=== PATIENT | female | born 1990 | race African-American/Black ===

== ENCOUNTER 2019-05-30 12:28 | Inpatient (IN) ==
[2019-05-30] MEDS ORDERED: TYLENOL PO PRN (13:17)
[2019-05-30] MEDS ORDERED: DULCOLAX PR PRN (13:17)
[2019-05-30] MEDS ORDERED: MOTRIN PO PRN (13:17)
[2019-05-30] MEDS ORDERED: ZOFRAN ODT PO PRN (13:17)
[2019-05-30] MEDS ORDERED: PHENOBARBITAL IV PRN (13:17)
[2019-05-30] MEDS ORDERED: D5W 1,000 ML IV PRN (13:17)
[2019-05-30] MEDS ORDERED: ZOFRAN IV PRN (13:17)
[2019-05-30] MEDS ORDERED: MAALOX PLUS LIQUID PO PRN (13:17)
[2019-05-30] MEDS ORDERED: NICOTINE GUM BUCCAL PRN (13:17)
[2019-05-30] MEDS ORDERED: NICODERM PATCH TD PRN (13:17)
[2019-05-30] MEDS ORDERED: IMODIUM PO PRN ×2 (13:17)
[2019-05-30] MEDS ORDERED: SENOKOT PO PRN (13:17)
[2019-05-30] MEDS ORDERED: ZOFRAN IM PRN (13:17)
[2019-05-30] MEDS ORDERED: TUBERSOL ID ONE (13:17)
[2019-05-30] MEDS ORDERED: LIBRIUM PO PRN (13:29)
[2019-05-30] MEDS ORDERED: BENTYL PO PRN (13:29)
[2019-05-30] MEDS ORDERED: SINEMET 25/100 PO PRN (13:29)
[2019-05-30 15:24] LABS: HEMATOCRIT 34.2 % (37.0-47.0); HEMOGLOBIN 10.4 g/dL (12.0-16.0); MCHC 30.4 g/dL (33-37); MCV 85.5 FL (81-99); MPV 10.2 FL (7.4-10.4); RDW 17.2 % (11.5-14.5); WBC 4.06 X1000 (4.8-10.8)
[2019-05-30] MEDS: LIBRIUM PO SCH ×2 (15:24→20:26)
[2019-05-30 15:39] LABS: URINE SOURCE CLEAN CATCH
[2019-05-30 15:45] LABS: AGAP 11; ALBUMIN 4.1 g/dL (3.5-5.0); ALKALINE PHOSPHATASE 92 U/L (32-104); AMYLASE 44 U/L (20-200); BUN 7 mg/dL (8-22); CALCIUM 9.2 mg/dL (8.8-10.2); CHLORIDE 101 mmol/L (98-107); COSMO 275; CREATININE 0.6 mg/dL (0.5-0.9); ESTIMATED GFR > 60; GLUCOSE 115 mg/dL (70-104); GOT 13 U/L (10-30); GPT 10 U/L (10-36); INR 0.93; LIPASE 22 U/L (13-60); POTASSIUM 3.9 mmol/L (3.5-5.1); PROTIME 12.9 Seconds (11.0-16.0); SODIUM 138 mmol/L (136-145); TCO2 26 mmol/L (25-35); TOTAL BILIRUBIN < 0.15 mg/dL (0.20-1.00); TOTAL PROTEIN 7.5 g/dL (6.3-8.3)
[2019-05-30 15:49] LABS: BILIRUBIN URINE NEGATIVE (NEGATIVE); BLOOD URINE NEGATIVE (NEGATIVE); COLOR YELLOW; GLUCOSE URINE NEGATIVE (NEGATIVE); KETONE URINE NEGATIVE (NEGATIVE); LEUKOCYTES URINE SMALL (NEGATIVE); NITRITE URINE POSITIVE (NEGATIVE); PH URINE 6.5; PROTEIN URINE TRACE mg/dL (NEGATIVE); SP GRAVITY URINE 1.026; TURBIDITY URINE CLEAR (CLEAR); UROBILINOGEN URINE NORMAL (NORMAL)
[2019-05-30 15:50] LABS: UR EPITHELIAL CELLS <10 /HPF (<10); URINE BACTERIA 4+ /HPF; URINE RBC <10 /HPF (<10)
[2019-05-30 19:45] LABS: UR AMPHETAMINES QUAL PRESUMPTIVE POSITIVE (NONE DETECT); UR BARBITUATES QUAL NONE DETECTED (NONE DETECT); UR BENZODIAZEPIN QUAL PRESUMPTIVE POSITIVE (NONE DETECT); UR CANNABINOIDS QUAL NONE DETECTED (NONE DETECT); UR COCAINE QUAL NONE DETECTED (NONE DETECT); UR METHADONE QUAL NONE DETECTED (NONE DETECT); UR METHAMPHETAMINE QUAL PRESUMPTIVE POSITIVE (NONE DETECT); UR OPIATES QUAL PRESUMPTIVE POSITIVE (NONE DETECT); UR OXYCODONE QUAL NONE DETECTED (NONE DETECT); UR PCP QUAL NONE DETECTED (NONE DETECT); UR PROPOXYPHENE QUAL NONE DETECTED (NONE DETECT); UR TCA QUAL NONE DETECTED (NONE DETECT)
[2019-05-30] MEDS: ROBAXIN PO PRN (20:31)
[2019-05-30] MEDS: SEROQUEL PO PRN (20:38)
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
[2019-05-31] MEDS: LIBRIUM PO SCH ×4 (01:41→21:18)
[2019-05-31] MEDS: PROTONIX PO SCH (06:30)
[2019-05-31] MEDS: FOLIC ACID PO SCH (08:23)
[2019-05-31] MEDS: VITAMIN B-1 PO SCH (08:23)
[2019-05-31] MEDS: THERA M PLUS PO SCH (08:23)
[2019-05-31] MEDS: ROBAXIN PO PRN ×2 (10:03→18:01)
[2019-05-31] MEDS: ATARAX PO PRN ×2 (10:40→20:29)
[2019-05-31] MEDS: ROCEPHIN 1 GM in NS 50 ML IV SCH ×2 (12:09→12:10)
--- NOTE | 2019-05-31 18:20 | PROGRESS NOTE ---
DATE: 05/31/2019 SUBJECTIVE: The patient notes that overall she feels terrible, but actually feels a little bit better than yesterday. She has had a little bit less muscle aches. No tremors, no myalgias. Notes that her skin crawling has improved. OBJECTIVE: Vital signs: Reviewed. She is awake, alert. She is in no current respiratory distress. Temperature 98 degrees, pulse 95, respiratory rate 18, BP 113/47. HEENT: Normocephalic. Neck supple. Cardiovascular: Regular rate. Chest clear. Abdomen soft. Extremities: Moves all extremities. Neurologic: No changes. ASSESSMENT: 1. Nausea and vomiting. 2. Abdominal pain. 3. Myalgias. 4. Paresthesias. 5. Paroxysmal sweating. 6. Opiate abuse, withdrawal and stabilization. 7. Polysubstance use and abuse. PLAN: We are going to continue the patient in the hospital, continue to follow. Continue to wean Librium as tolerated. Further orders as needed. cc: Ed Cabrera MD
[2019-05-31] MEDS: SEROQUEL PO PRN (20:29)
[2019-06-01] MEDS ORDERED: FLU VACCINE IM ONE (05:00)
[2019-06-01] MEDS: LIBRIUM PO SCH ×3 (05:36→21:17)
[2019-06-01] MEDS: PROTONIX PO SCH (06:04)
[2019-06-01] MEDS ORDERED: TORADOL IV PRN (08:59)
[2019-06-01] MEDS ORDERED: SUBOXONE 2 MG/0.5 MG FILM SL ONE (09:00)
[2019-06-01] MEDS: VITAMIN B-1 PO SCH (09:31)
[2019-06-01] MEDS: THERA M PLUS PO SCH (09:31)
[2019-06-01] MEDS: FOLIC ACID PO SCH (09:31)
[2019-06-01] MEDS: ROCEPHIN 1 GM in NS 50 ML IV SCH (12:47)
[2019-06-01] MEDS: SEROQUEL PO PRN (20:08)
[2019-06-01] MEDS: ATARAX PO PRN (20:08)
[2019-06-01] MEDS: DESYREL PO PRN (21:21)
[2019-06-02] MEDS: ATARAX PO PRN (03:30)
[2019-06-02] MEDS: LIBRIUM PO SCH ×4 (05:23→17:21)
[2019-06-02] MEDS: PROTONIX PO SCH (06:17)
[2019-06-02] MEDS: THERA M PLUS PO SCH (08:31)
[2019-06-02] MEDS: VITAMIN B-1 PO SCH (08:31)
[2019-06-02] MEDS: FOLIC ACID PO SCH (08:31)
[2019-06-02] MEDS ORDERED: SUBUTEX SL ONE (09:57)
--- NOTE | 2019-06-02 14:12 | PROGRESS NOTE ---
DATE: 06/02/2019 SUBJECTIVE: Patient notes that the Suboxone yesterday made her vomit. Unfortunately, she does appear to feel bad. However, she is quite uninterested in answering questions or delineating her responses. She mumbles most of the time when she is asked any type of question. OBJECTIVE: Vital Signs: Temperature 98, pulse 106, respiratory rate 20, BP 120/77. General: Patient is in no respiratory distress. She is laying in the bed with the covers over her head. HEENT: Normocephalic. Neck: Supple. Cardiovascular: Regular rate. Chest: Clear. Abdomen: Soft. Extremities: She is noted to move all extremities. Neurologic: Essentially unable to assess as she is quite recalcitrant to participate in her care currently. ASSESSMENT: 1. Nausea and vomiting. 2. Abdominal pain. 3. Myalgias. 4. Paresthesias. 5. Paroxysmal sweating. 6. Opiate abuse, withdrawal, and stabilization. PLAN: We will continue patient in the hospital. Certainly, she has been off opiates long enough unless she was taking methadone or fentanyl, both of which she declines to answer, that Suboxone should have actually made her feel better, not cause vomiting. Therefore, we are going to stop her Suboxone. We will continue Librium at 20 t.i.d. today and we will follow. cc: Ed Cabrera MD
[2019-06-03] MEDS: PROTONIX PO SCH ×2 (05:56→06:29)
[2019-06-03] MEDS ORDERED: SUBUTEX SL ONE (08:32)
[2019-06-03] MEDS ORDERED: M.V.I.-12 10 ML, FOLIC ACID 1 MG, MAGNESIUM SULFATE 1 GM, THIAMINE 100 MG in NS 1,000 ML IV ONE (08:33)
[2019-06-03] MEDS ORDERED: PHENERGAN PO PRN (08:33)
--- NOTE | 2019-06-03 08:48 | PROGRESS NOTE ---
ADMISSION DATE: 05/30/2019 DISCHARGE DATE: SUBJECTIVE: Patient unfortunately feels quite terrible this morning. She is sweating. She is nauseated. She is having muscle aches. She is writhing in the bed at times. She is having obvious sweating episodes. PHYSICAL EXAMINATION: VITAL SIGNS: Reviewed. Her vital signs are stable. Blood pressure normal, respiratory rate 22, pulse 90s. GENERAL: She is awake, alert. She is in no respiratory distress but is somewhat ill-appearing as noted above. HEENT: Normocephalic. NECK: Supple. CARDIOVASCULAR: Regular rate. No murmurs. CHEST: Clear and nonlabored. ABDOMEN: Soft, nondistended, nontender. EXTREMITIES: Moves all extremities. NEUROLOGIC: No focal changes. SKIN: Warm and dry, no rashes. ASSESSMENT: 1. Nausea and vomiting. 2. Abdominal pain. 3. Myalgias. 4. Paresthesias. 5. Paroxysmal sweating. 6. Polysubstance use and abuse. PLAN: We are going to continue the patient in the hospital. We are going to add a small dose of Suboxone this morning. We will follow. We will give her Toradol as well. Further orders as needed. cc: Ed Cabrera MD
[2019-06-03] MEDS: VITAMIN B-1 PO SCH (09:02)
[2019-06-03] MEDS: LIBRIUM PO SCH ×3 (09:02→17:07)
[2019-06-03] MEDS: THERA M PLUS PO SCH (09:02)
[2019-06-03] MEDS: FOLIC ACID PO SCH (09:02)
[2019-06-03] MEDS: ROBAXIN PO PRN (18:32)
[2019-06-03] MEDS: SEROQUEL PO PRN (19:13)
[2019-06-03 20:09] VITALS: BP 148/90
[2019-06-03] MEDS: DESYREL PO PRN (21:11)
[2019-06-04] MEDS: PROTONIX PO SCH (06:10)
--- NOTE | 2019-06-04 07:34 | PROGRESS NOTE ---
DATE: 06/03/2019 SUBJECTIVE: Patient notes she still feels absolutely terrible, still having muscle aches, myalgias, paresthesias. She is unwilling or unable to answer if this is improved or worsened from yesterday. PHYSICAL EXAMINATION: Vital Signs: Reviewed. General: Patient is awake and alert. She is in no current respiratory distress but is somewhat ill-appearing. Has cover pulled up over her head, is not forthcoming with answers. HEENT: Normocephalic. Neck: Supple. Cardiovascular: Regular rate. Chest: Clear. Abdomen: Soft. Extremities: Moves all extremities. ASSESSMENT: 1. Nausea and vomiting. 2. Abdomen pain. 3. Tremors. 4. Myalgias. 5. Paresthesias. 6. Paroxysmal sweating. PLAN: We are gong to admit the patient to the hospital. Continue counseling. Continue to wean. We will use a low-dose of Subutex this afternoon if needed. cc: Ed Cabrera MD
[2019-06-04] MEDS ORDERED: LIBRIUM PO SCH (08:00)
[2019-06-04] MEDS: FOLIC ACID PO SCH (08:51)
[2019-06-04] MEDS: VITAMIN B-1 PO SCH (08:51)
[2019-06-04] MEDS: THERA M PLUS PO SCH (08:51)
--- NOTE | 2019-06-05 07:20 | DISCHARGE SUMMARY ---
ADMISSION DATE: 05/30/2019 DISCHARGE DATE: 06/04/2019 DISCHARGE DIAGNOSES: 1. Nausea and vomiting, continued to be problematic. See below. 2. Myalgias. 3. Tremors. 4. Paresthesias. 5. Polysubstance use and abuse and withdrawal. 6. Situational depression. CONSULTATIONS: None. PROCEDURES: None. BRIEF HOSPITAL COURSE: The patient is a 28-year-old female, who presented to [facility] program secondary to the above symptoms. Very difficult to manage her symptoms as she was not forthcoming with information. She frequently would not answer questions. She remained in the bed with the covers over her head throughout the majority of the hospitalization. Rarely would roll over, remove the covers from her face and answer questions. It is difficult to ascertain if nausea was improving, as she stated everything during Librium to Suboxone to Seroquel and Prilosec causes her to vomit, although this was never actually witnessed by the staff. Thankfully, her vital signs improved, remained completely stable throughout the entire hospitalization. She was weaned down and off of Librium while she was in the hospital. DISPOSITION: Patient can be discharged to further inpatient treatment. She will not have any medications, other than [id number] medications on discharge. TIME SPENT: Greater than 30 minutes was spent in total care. cc: Ed Cabrera MD
== END 2019-06-04 10:36 | disposition home or self-care (01) | DRG 897 ==
LOC: P.DIRADM 12:28 → P.MEDSURG 12:54
PROVIDERS: ADMIT Family Medicine; ATTEND Family Medicine

== ENCOUNTER 2019-08-14 16:09 | Inpatient (IN) ==
[2019-08-14] MEDS ORDERED: ZOFRAN IV PRN (18:12)
[2019-08-14] MEDS ORDERED: TUBERSOL ID ONE (18:12)
[2019-08-14] MEDS ORDERED: TYLENOL PO PRN (18:12)
[2019-08-14] MEDS ORDERED: ZOFRAN IM PRN (18:12)
[2019-08-14] MEDS ORDERED: IMODIUM PO PRN ×2 (18:12)
[2019-08-14] MEDS ORDERED: PHENOBARBITAL IV PRN (18:12)
[2019-08-14] MEDS ORDERED: NICOTINE GUM BUCCAL PRN (18:12)
[2019-08-14] MEDS ORDERED: SENOKOT PO PRN (18:12)
[2019-08-14] MEDS ORDERED: NICODERM PATCH TD PRN (18:12)
[2019-08-14] MEDS ORDERED: D5W 1,000 ML IV PRN (18:12)
[2019-08-14] MEDS ORDERED: DULCOLAX PR PRN (18:12)
[2019-08-14] MEDS ORDERED: DESYREL PO PRN (18:12)
[2019-08-14] MEDS ORDERED: MAALOX PLUS LIQUID PO PRN (18:12)
[2019-08-14] MEDS ORDERED: SEROQUEL PO PRN (18:12)
[2019-08-14] MEDS ORDERED: ZOFRAN ODT PO PRN (18:12)
[2019-08-14] MEDS ORDERED: PNEUMOVAX 23 IM ONE (18:44)
[2019-08-14 18:52] LABS: URINE SOURCE CLEAN CATCH
[2019-08-14 18:57] LABS: BILIRUBIN URINE NEGATIVE (NEGATIVE); BLOOD URINE NEGATIVE (NEGATIVE); COLOR YELLOW; GLUCOSE URINE NEGATIVE (NEGATIVE); KETONE URINE NEGATIVE (NEGATIVE); LEUKOCYTES URINE NEGATIVE (NEGATIVE); NITRITE URINE NEGATIVE (NEGATIVE); PH URINE 7.5; PROTEIN URINE TRACE mg/dL (NEGATIVE); SP GRAVITY URINE 1.023; TURBIDITY URINE CLEAR (CLEAR); UR EPITHELIAL CELLS <10 /HPF (<10); URINE BACTERIA 3+ /HPF; URINE RBC <10 /HPF (<10); URINE WBC <10 /HPF (<10); UROBILINOGEN URINE NORMAL (NORMAL)
[2019-08-14 19:10] LABS: UR METHAMPHETAMINE QUAL PRESUMPTIVE POSITIVE (NONE DETECT); UR OPIATES QUAL PRESUMPTIVE POSITIVE (NONE DETECT)
[2019-08-14 19:11] LABS: UR AMPHETAMINES QUAL PRESUMPTIVE POSITIVE (NONE DETECT); UR BARBITUATES QUAL NONE DETECTED (NONE DETECT); UR BENZODIAZEPIN QUAL NONE DETECTED (NONE DETECT); UR CANNABINOIDS QUAL NONE DETECTED (NONE DETECT); UR COCAINE QUAL NONE DETECTED (NONE DETECT); UR METHADONE QUAL NONE DETECTED (NONE DETECT); UR OXYCODONE QUAL NONE DETECTED (NONE DETECT); UR PCP QUAL NONE DETECTED (NONE DETECT); UR PROPOXYPHENE QUAL NONE DETECTED (NONE DETECT); UR TCA QUAL NONE DETECTED (NONE DETECT)
[2019-08-14 19:40] LABS: HEMATOCRIT 36.8 % (37.0-47.0); HEMOGLOBIN 11.3 g/dL (12.0-16.0); MCH 26.4 PG (27-31); MCHC 30.7 g/dL (33-37); MPV 10.5 FL (7.4-10.4); RBC 4.28 XMIL (4.2-5.4); RDW 16.3 % (11.5-14.5); WBC 5.86 X1000 (4.8-10.8)
[2019-08-14 20:02] LABS: INR 0.83; PROTIME 11.8 Seconds (11.0-16.0)
[2019-08-14 20:06] LABS: AMYLASE 71 U/L (20-200); LIPASE 30 U/L (13-60)
[2019-08-14 20:09] LABS: AGAP 12; ALBUMIN 4.2 g/dL (3.5-5.0); ALKALINE PHOSPHATASE 110 U/L (32-104); BUN 11 mg/dL (8-22); CALCIUM 9.3 mg/dL (8.8-10.2); CHLORIDE 100 mmol/L (98-107); COSMO 277; CREATININE 0.9 mg/dL (0.5-0.9); ESTIMATED GFR > 60; GLUCOSE 65 mg/dL (70-104); GOT 16 U/L (10-30); GPT 14 U/L (10-36); POTASSIUM 4.1 mmol/L (3.5-5.1); SODIUM 140 mmol/L (136-145); TCO2 28 mmol/L (25-35); TOTAL BILIRUBIN < 0.15 mg/dL (0.20-1.00)
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
[2019-08-15] MEDS: SUBOXONE 2 MG/0.5 MG FILM SL SCH ×2 (05:13→06:29)
[2019-08-15] MEDS ORDERED: PROTONIX PO SCH (07:00)
[2019-08-15 07:59] VITALS: BP 146/81
[2019-08-15] MEDS ORDERED: THERA M PLUS PO SCH (09:00)
[2019-08-15] MEDS ORDERED: VITAMIN B-1 PO SCH (09:00)
[2019-08-15] MEDS ORDERED: FOLIC ACID PO SCH (09:00)
[2019-08-15 15:48] LABS: HIV ANTIBODY SCREEN SEE COMMENTS
--- NOTE | 2019-08-15 22:20 | PROGRESS NOTE ---
DATE: 08/15/2019 SUBJECTIVE: The patient notes she had an eventful night last night. Apparently, she injected Suboxone and went into immediate withdrawal. She admits now that she knows this was a very poor decision and she has no desire to harm herself. PHYSICAL EXAMINATION: Vital Signs: Reviewed. General: She is awake, alert, oriented. She is in no current respiratory distress. HEENT: Normocephalic. Neck: Supple. Cardiovascular: Regular rate. Chest: Clear. Abdomen: Soft. Extremities: Moves all extremities. ASSESSMENT: 1. Nausea and vomiting. 2. Abdominal pain. 3. Tremors. 4. Myalgias. 5. Paresthesias. 6. Polysubstance use and abuse. 7. Chest pain. 8. Others. PLAN: Overall, the patient's symptoms have improved. Therefore, hopefully we can discharge home. cc: Ed Cabrera MD
== END 2019-08-15 10:02 | disposition home or self-care (01) | DRG 897 ==
LOC: P.MEDSURG 16:55
PROVIDERS: ADMIT Family Medicine; ATTEND Family Medicine